=== PATIENT | male | born 1985 | race Caucasian/White ===

== ENCOUNTER → 2016-06-15 | Outpatient (CLI) | payer OTHER ==
[~2016-06-15] MED LIST: LISINOPRIL10 MG PO; TESSALON PERLE100 M1 PO
== END | disposition home or self-care (01) ==
LOC: CBAR 07:35
DX: Z01.812 Encounter for preprocedural laboratory examination (principal); E66.01 Morbid (severe) obesity due to excess calories
CPT/HCPCS: 36415; 84443; 86677; G0463

== ENCOUNTER → 2016-07-13 | Outpatient (CLI) | payer OTHER ==
--- NOTE | ~2016-07-13 | EKG ---
PATIENT: BYRON GUIDRY UNIT #: [id number] Ventricular Rate: 84 BPM Atrial Rate: 84 BPM P-R Interval: 162 ms QRS Duration: 90 ms Q-T Interval: 374 ms QTC Calculation(Bezet): 441 ms P [place]: 26 degrees Calculated R [place]: 15 degrees Calculated T [place]: 22 degrees Diagnosis Line: Normal sinus rhythm Diagnosis Line: Normal ECG Diagnosis Line: No previous ECGs available Diagnosis Line: Confirmed by MARCOS CHAVARRIA MD ([id number]) on Diagnosis Line: 07/14/2016 4:49:41 PM INTERPRETING MD: EDU
--- NOTE | ~2016-07-13 | CR97 ---
[facility] A Service of [facility] & [facility] RADIOLOGY TEXT RESULTS PATIENT: BYRON GUIDRY LOCATION: [facility] : 87 UNIT #: [id number] AGE: [address]: Braydon Romero III, MD SEX: M ORDER DR: [id number] [facility] [address] [place], [place] [address] [id number] O MR#: [id number] Acc #: [id number] NAME: BYRON GUIDRY : 1985 SEX: M STUDY DATE/TIME: 07/13/2016 8:19 UNIT: [facility] ROOM: STUDY DESCRIPTION: CR Esophagram Attending Physician: Braydon Romero III, M.D. Ordering Physician: Braydon Romero III, M.D. Primary Care Physician: Sonya Champion M.D. MEDICAL IMAGING REPORT This report is preliminary unless electronic signature is present EXAM Esophagram 07/13/2016 COMPARISON None. HISTORY Planned Lap-Band surgery. FINDINGS Esophagus is normal in course and caliber. No mass, stricture, or other abnormality is seen. Total fluoroscopy time 0.3 minutes, 5 spot images. IMPRESSION Normal esophagram. Dictated by... Marcelino Mota M.D. THIS IS AN ELECTRONICALLY VERIFIED REPORT Marcelino Mota M.D. at 07/17/2016 3:56 PM ANUPAM/irma TD: 07/16/2016 13:04 JOB #: [id number] MEDICAL IMAGING REPORT Page 1 of 1 COPY
--- NOTE | ~2016-07-13 | CR63 ---
[facility] A Service of [facility] & [facility] RADIOLOGY TEXT RESULTS PATIENT: BYRON GUIDRY LOCATION: [facility] : 87 UNIT #: [id number] AGE: [address]: Braydon Romero III, MD SEX: M ORDER DR: [id number] [facility] [address] [facility]. [place], [place] [address] [id number] O MR#: [id number] Acc #: [id number] NAME: BYRON GUIDRY : 1985 SEX: M STUDY DATE/TIME: 07/13/2016 8:04 UNIT: [facility] ROOM: STUDY DESCRIPTION: CR Chest 2 View Attending Physician: Braydon Romero III, M.D. Ordering Physician: Braydon Romero III, M.D. Primary Care Physician: Sonya Champion M.D. MEDICAL IMAGING REPORT This report is preliminary unless electronic signature is present EXAM Chest PA and lateral 3 views 07/13/2016 HISTORY Morbid obesity, preop laparoscopic gastric banding. Cough today. Benign essential hypertension. FINDINGS PA and lateral examination of the chest upright shows a good expansion of the parenchyma with a normal distribution of the pulmonary vascularity. There is no indication of congestion, effusion, infiltrate, tumor, or nodular density. The pleural reflections and diaphragmatic contours are normal. The cardiac silhouette and mediastinal anatomy is within normal limits. IMPRESSION Normal chest. Dictated by... Dank Benson M.D. THIS IS AN ELECTRONICALLY VERIFIED REPORT Dank Benson M.D. at 07/13/2016 5:33 PM SHIRA/irma TD: 07/13/2016 12:01 JOB #: [id number] MEDICAL IMAGING REPORT Page 1 of 1 COPY
[2016-07-13 10:02] LABS: HEMATOCRIT 47.1 % (38.0-50.0); HEMOGLOBIN 15.6 gm/dL (13.0-16.0); MEAN CELL VOLUME 80.1 FL (83-96); MEAN CORPUSCULAR HEMOGLOBIN 26.5 PG (28-34); MEAN CORPUSCULAR HGB CONC 33.1 g/dL (30-36); MEAN PLATELET VOLUME 10.1 FL (6.5-11.5); RED BLOOD COUNT 5.88 X10e (3.90-5.60); WHITE BLOOD COUNT 10.6 X10e3 (4.0-10.5)
[2016-07-13 11:02] LABS: ALBUMIN SERUM 4.1 g/dL (3.5-5.0); BILIRUBIN,TOTAL 1.1 mg/dL (0.2-2.0); BUN/CREATININE RATIO 14.44; CREATININE SERUM 0.9 mg/dL (0.6-1.4); POTASSIUM 4.2 mmol/L (3.5-5.1)
== END | disposition home or self-care (01) ==
LOC: CRAD 07:51
PROVIDERS: Surgery
DX: Z01.818 Encounter for other preprocedural examination (principal)
CPT/HCPCS: 36415; 71020; 74220; 80053; 80061; 84443; 85027; 93005

== ENCOUNTER → 2016-07-25 | Day surgery (SDC) | payer OTHER ==
--- NOTE | ~2016-07-25 | CR7 ---
[facility] A Service of [facility] & [facility] RADIOLOGY TEXT RESULTS PATIENT: BYRON GUIDRY LOCATION: [facility] : 87 UNIT #: [id number] AGE: [address]: Braydon Romero III, MD SEX: M ORDER DR: [id number] [id number] [place], [place] [address] [id number] O MR#: [id number] Acc #: [id number] NAME: BYRON GUIDRY : 1985 SEX: M STUDY DATE/TIME: UNIT: [facility] ROOM: STUDY DESCRIPTION: CR Abdomen Single AP View Attending Physician: Braydon Romero III, M.D. Ordering Physician: Braydon Romero III, M.D. Primary Care Physician: Sonya Champion M.D. MEDICAL IMAGING REPORT This report is preliminary unless electronic signature is present EXAM Abdomen one-view 07/25/2016 1010 hours HISTORY Morbid obesity, postop Lap-Band placement today. COMPARISON Esophagram 07/13/2016 FINDINGS Single supine view of the abdomen demonstrates a new Lap-Band projecting over the left T10 costovertebral junction oriented at 43 degrees from vertical. Radiopaque tubing courses inferiorly to a port projecting over the left pedicle of L4. Bowel gas pattern is unremarkable. IMPRESSION Limited film confirms the presence of a new Lap-Band overlying the left T10 costovertebral junction oriented at 43 degrees from vertical. Radiopaque tubing courses inferiorly to a port projecting over the left pedicle of L4. Bowel gas pattern is unremarkable. Dictated by... Amirah Briceño M.D. THIS IS AN ELECTRONICALLY VERIFIED REPORT Amirah Briceño M.D. at 07/25/2016 12:04 PM SMM/juan c TD: 07/25/2016 11:19 JOB #: [id number] MEDICAL IMAGING REPORT Page 1 of 1 COPY
--- NOTE | ~2016-07-25 | OR ---
Unit #: [id number] #: [id number] Patient: BYRON GUIDRY [id number] [facility] [address] [facility]. [place], [place] [address] [id number] O MR#: [id number] NAME: BYRON GUIDRY ROOM: Date of Procedure: 07/25/2016 Admission Date: 07/25/2016 Surgeon: Braydon Romero III, M.D. : 1985 Attending Physician: Braydon Romero III, M.D. Primary Care Physician: Sonya Champion M.D. OPERATIVE REPORT PREOPERATIVE DIAGNOSIS Chronic morbid obesity. POSTOPERATIVE DIAGNOSIS Chronic morbid obesity. PROCEDURE PERFORMED Laparoscopic adjustable gastric banding (AP standard with regular port) and laparoscopic paraesophageal hernia repair. CHAINSTITCH BINDER Dr. Franco Araya. SPECIMENS None. COMPLICATIONS None apparent. ESTIMATED BLOOD LOSS Minimal. ANESTHESIA General endotracheal tube. INDICATIONS FOR PROCEDURE This is a 31-year-old gentleman, who has chronic morbid obesity with a BMI of 48 with no particular comorbidities. He has been through the bariatric program at [facility] and understands risks and benefits of the procedure. DESCRIPTION OF PROCEDURE After consent was obtained, including the risks and benefits of slippage, erosion, port dysfunction, and possible failure of weight loss due to noncompliance, the patient was taken to the operating room and placed in the supine position. General anesthetic was administered and the abdomen was prepped and draped in standard surgical fashion. I began by making a 2 cm incision just above and to the left of the umbilicus. I used a Visiport to enter the peritoneal cavity without any difficulty. C02 pneumoperitoneum was then established. Next, I placed a 5 mm port in the right upper quadrant, a 5 mm Jose liver retractor in Unit #: [id number] #: [id number] Patient: BYRON GUIDRY the subxiphoid region to provide exposure of the gastroesophageal junction. Next, a 10 mm port was placed in the left upper quadrant and a 5 mm port was placed in the left lateral subcostal region. I began by performing an examination of the GE junction to evaluate for a hiatal hernia. We then scored the peritoneal attachments overlying the angle of His. I then opened up the clear space in the gastrohepatic ligament, and then using 2 blunt graspers, I identified the small fat pad crossing over the right crura. I swept the fat anterior to the crura off the crura and using the pars flaccida, I created a retrogastric tunnel where the blunt grasper exited at the angle of His. Once I had made this tunnel safely, I then inserted an Allergan AP band into the abdominal cavity. This adjustable gastric band was then place around the upper part of the stomach and fastened and buckled anteriorly. We then tacked the lateral fundus over the band to the proximal pouch with 2 interrupted 0 Ethibond sutures. I then used a third stitch to imbricate the excess anterior stomach by going from the lesser curvature up towards where the last stitch was placed. We then had excellent hemostasis. I removed the Jose liver retractor. We then removed the port tubing through the initial port incision. The rest of the ports were removed, and the pneumoperitoneum was released. I then left a small tail on the tubing. We then attached the port to the excess band tubing. We placed a piece of Prolene mesh along the back side of the port and used a Prolene stitch to anchor this mesh in place. We then trimmed the excess mesh so that just a small footprint of mesh was in place behind the port. I then inserted the tubing back into the abdominal cavity, and we placed the port into a small pocket that was made just inferior to where our initial port incision was made. The mesh was in direct contact with the fascia, and this will scar in place to hold the port in place. We then injected all the port sites with 0.25% plain Marcaine, and I reapproximated the skin edges with interrupted 4-0 Vicryl subcuticular sutures. Steri-strips were then applied. The patient tolerated the procedure without any problems and returned to the recovery room in stable condition. ADDENDUM After exposure of the GE junction, the patient was noted to have a small to medium size anterior paraesophageal hernia. I scored the phrenoesophageal ligament, reduced the hernia defect and after identifying both the right and left crura, I reapproximated the defect with an interrupted 0 Ethibond [id number] suture. I then proceeded with the case as listed above. Dictated by... Braydon Romero III, M.D. VCL/yen TD: 07/25/2016 23:24 JOB #: [id number] Unit #: [id number] #: [id number] Patient: BYRON GUIDRY OPERATIVE REPORT Page 1 of 1 X Braydon Romero III, MD X PROCEDURE OPERATIVE NOTE
== END | disposition home or self-care (01) ==
LOC: CSUR 07:21
DX: E66.01 Morbid (severe) obesity due to excess calories (principal); K44.9 Diaphragmatic hernia without obstruction or gangrene; I10 Essential (primary) hypertension; K21.9 Gastro-esophageal reflux disease without esophagitis; G47.30 Sleep apnea, unspecified; Z68.42 Body mass index [BMI] 45.0-49.9, adult; Z79.899 Other long term (current) drug therapy; Z90.89 Acquired absence of other organs; Z98.890 Other specified postprocedural states
CPT/HCPCS: 74000; C1781; J0330; J0690; J1650; J1885; J2250; J2405; J2710; J3010